=== PATIENT | female | born 1935 | race Caucasian/White ===

== ENCOUNTER 2021-01-24 16:05 | Inpatient (IN) | payer OTHER ==
--- OUTSIDE RECORDS SUMMARY | 2021-01-24 16:08 | XMS REPORT | Continuity of Care Document ---
:1935 Author Organization [facility] t Address [address] [place] [address] Care Team Providers Name Role Phone Gennaro August Primary Care Physician MARLA EGAN Attending Clinician Unavailable DARRIAN BENITEZ Attending Clinician Unavailable RONEL TOMLIN Attending Clinician Unavailable MARLA EGAN Admitting Clinician Unavailable RONEL TOMLIN Admitting Clinician Unavailable Problems Condition Condition Condition Status Onset Resolution Last Treating Co mments Source Name Details Category Date Date Treatment Clinician Date Bronchiect Bronchiect Disease Active C [facility] with asis with 01-08 [facility] - acute acute 00:00: Medical exacerbati exacerbati 00 Ce nter on on Allergies, Adverse Reactions, Alerts Allergy Allergy Status Severity Reaction(s) Onset Inactive Treating Comm ents Source Name Type Date Date Clinician Albutero Drug Active Other (See tachycard [facility] Comments) 12-21 [facility] Levoflox Drug Active Other (See Leg [facility] Allergy [facility]) 12-21 cramps [facility] - 00:[facility]: and Medical 00 [facility] Center walk Social History Social Habit Start Date Stop Date Quantity Comments Source Sex Assigned At [facility] Tobacco use and 2019-01-16 2019-01-16 Never used [facility] Cindy kes - exposure 00:00:00 00:00:00 Medical Center Alcohol intake 2019-01-16 2019-01-16 [facility]:00 non-drinker of Medical Ce nter alcohol (finding) Tobacco Comment 2016-12-21 2016-12-[address] [email or web address] - 00:00:00 00:00:00 Medical Center Smoking Status Start Date Stop Date Source Former smoker 2019-01-16 00:00:00 2019-01-16 00:00:[address] [email or web address] - [facility] Medications Ordered Filled Start Stop Current Ordering Indication Dosage Frequency Signature Comments Components Source Medication Medication Date Date Medication? Clinician (SIG) Name Name multivitami Yes 1{tbl} QD Take [address] [facility] 4-23 tablet by [facility] - (MULTIVITAM 14:32: mouth Medic al IN) per 06 daily. Center tablet umeclidiniu Yes 1{puff} QD Inhale [address] [facility] (INCRUSE 4-23 puff by [facility] - ELLIPTA) 14:32: mouth via Medi mu 62.5 06 inhaler Center mcg/actuati daily. on DsDv powder for inhalation ranitidine Yes 150mg QD Take [address] (ZANTAC) 4-23 mg by [facility] - 150 MG 14:32: mouth Medical tablet 06 nightly. Paia diltiaZEM Yes 30mg Q.5D Take [address] (CARDIZEM) 4-23 by mouth 2 Sharron es - 30 MG 14:32: (two) Medical tablet 06 times Center daily. levalbutero Yes 1{ampul Take [address] [facility] (XOPENEX) 4-23 e} ampule by Sharron es - 0.63 mg/3 14:32: nebulizati Me dical mL 06 on every 6 Center nebulizer (six) solution hours as needed for Wheezing. omeprazole Yes 40mg QD Take [address] (PRILOSEC) 4-23 by mouth [facility] - 40 MG 14:32: daily. Medical capsule 06 Paia ipratropium Yes 500ug Q.25D Take [address] (ATROVENT) 4-23 mcg by [facility] - 0.02 % 14:32: nebulizati Medic al nebulizer 06 on 4 Center solution (four) times daily. levalbutero Yes 1{puff} Inhale [address] [facility] (XOPENEX 4-23 puff by [facility] - HFA) 45 14:32: mouth via Medic al mcg/actuati 06 inhaler Cente r on inhaler every 6 (six) hours as needed for Wheezing. Procedures This patient has no known procedures. Plan of Care Planned Activity Planned Date Details Comments Source Future Scheduled 2020-09-[address] [facility] - Test 00:00:00 (12+) [code = [facility] DEPRESSION SCREENING (12+)] Future Scheduled 2020-05-[address] [facility] - Test 00:00:00 (#1) [code = [facility] INFLUENZA VACCINE (#1)] Future Scheduled 2019-09-[address] [facility] - Test 00:00:00 WELLNESS (YEAR 2 or Medical Center FIRST YEAR if no IPPE) [code = MEDICARE ANNUAL WELLNESS (YEAR 2 or FIRST YEAR if no IPPE)] Future Scheduled 2012-09-28 SHINGLES VACCINES ([address] [facility] - Test 00:00:00 of 3) [code = [facility] SHINGLES VACCINES (2 of 3)] Future Scheduled 1956 DTAP/TDAP/TD VACCINES [facility] - Test 00:00:00 (1 - Tdap) [code = Medical C enter DTAP/TDAP/TD VACCINES (1 - Tdap)] Results Test Description Test Time Test Comments Results Result Comments Source AFB CULTURE + SMEAR 2019-02-26 19:20:00 Test Item Value Reference Range Interpretation Comme nts CULTURE (BEAKER) (test code = 1095) No acid-fast bacilli isolated i n 42 days AFB SMEAR (BEAKER) (test code = 994) No acid fast bacilli seen FUNGUS CULTURE + [id number] 18:23:00 Test Item Value Reference Range Interpretation Comments CULTURE (BEAKER) (test No fungus isolated in code = 1095) 28 days FUNGUS SMEAR (BEAKER) No fungi seen (test code = 1406) BRONCHIAL CULTURE + GRAM [id number] 10:45:00 Test Item Value Reference Range Interpretation Comments CULTURE (BEAKER) 3+ Normal respiratory (test code = 1095) karley present GRAM STAIN RESULT 1+ WBCs (BEAKER) (test code = 1123) GRAM STAIN RESULT <1+ gram positive rods (BEAKER) (test code = 95023) GRAM STAIN RESULT <1+ gram positive cocci (BEAKER) (test code = in clusters 99304) SPIN/CONCENTRATION [id number] 10:14:00 Test Item Value Reference Range Interpretation Comments CONCENTRATION CHARGED (BEAKER) (test Done code = 2657) BASIC METABOLIC [id number] 19:31:00 Test Item Value Reference Range Interpretation Comments SODIUM (BEAKER) 135 meq/L 136-145 L (test code = 381) POTASSIUM (BEAKER) 4.7 meq/L 3.5-5.1 (test code = 379) CHLORIDE (BEAKER) 103 meq/L 98-107 (test code = 382) CO2 (BEAKER) (test 23 meq/L 22-29 code = 355) BLOOD UREA NITROGEN 26 mg/dL 7-21 H (BEAKER) (test code = 354) CREATININE (BEAKER) 0.86 mg/dL 0.57-1.25 (test code = 358) GLUCOSE RANDOM 107 mg/dL 70-105 H (BEAKER) (test code = 652) CALCIUM (BEAKER) 9.7 mg/dL 8.4-10.2 (test code = 697) EGFR (BEAKER) (test 63 mL/min/1.73 ESTIMA OLIVER GFR IS code = 1092) sq m NOT ACCURATE CREATININE CLEARANCE IN PREDICTING GLOMERULAR FILTRATION RATE . ESTIMATED GFR I S NOT APPLICABLE FOR DIALYSIS PATIEN TS. CBC W/PLT COUNT & AUTO [id number] 19:17:00 Test Item Value Reference Range Interpretation Comments WHITE BLOOD CELL COUNT (BEAKER) 8.0 K/ L 3.5-10.5 (test code = 775) RED BLOOD CELL COUNT (BEAKER) 3.91 M/ L 3.93-5.22 L (test code = 761) HEMOGLOBIN (BEAKER) (test code = 11.9 GM/DL 11.2-15.7 410) HEMATOCRIT (BEAKER) (test code = 36.1 % 34.1-44.9 411) MEAN CORPUSCULAR VOLUME (BEAKER) 92.3 fL 79.4-94.8 (test code = 753) MEAN CORPUSCULAR HEMOGLOBIN 30.4 pg 25.6-32.2 (BEAKER) (test code = 751) MEAN CORPUSCULAR HEMOGLOBIN CONC 33.0 GM/DL 32.2-35.5 (BEAKER) (test code = 752) RED CELL DISTRIBUTION WIDTH 13.5 % 11.7-14.4 (BEAKER) (test code = 412) PLATELET COUNT (BEAKER) (test 444 K/CU MM 150-450 code = 756) MEAN PLATELET VOLUME (BEAKER) 8.4 fL 9.4-12.3 L (test code = 754) NUCLEATED RED BLOOD CELLS 0 /100 WBC 0-0 (BEAKER) (test code = 413) NEUTROPHILS RELATIVE PERCENT 69 % (BEAKER) (test code = 429) LYMPHOCYTES RELATIVE PERCENT 19 % (BEAKER) (test code = 430) MONOCYTES RELATIVE PERCENT 8 % (BEAKER) (test code = 431) EOSINOPHILS RELATIVE PERCENT 3 % (BEAKER) (test code = 432) BASOPHILS RELATIVE PERCENT 1 % (BEAKER) (test code = 437) NEUTROPHILS ABSOLUTE COUNT 5.50 K/ L 1.56-6.13 (BEAKER) (test code = 670) LYMPHOCYTES ABSOLUTE COUNT 1.54 K/ L 1.18-3.74 (BEAKER) (test code = 414) MONOCYTES ABSOLUTE COUNT (BEAKER) 0.63 K/ L 0.24-0.36 H (test code = 415) EOSINOPHILS ABSOLUTE COUNT 0.23 K/ L 0.04-0.36 (BEAKER) (test code = 416) BASOPHILS ABSOLUTE COUNT (BEAKER) 0.04 K/ L 0.01-0.08 (test code = 417) IMMATURE GRANULOCYTES-RELATIVE 0 % 0-1 PERCENT (BEAKER) (test code = 2801) AFB CULTURE + [id number] 15:03:00 Test Item Value Reference Range Interpretation Comments CULTURE (BEAKER) (test No acid-fast bacilli code = 1095) isolated in 42 days AFB SMEAR (BEAKER) No acid fast bacilli (test code = 994) seen AFB CULTURE + [id number] 15:03:00 Test Item Value Reference Range Interpretation Comments CULTURE (BEAKER) (test No acid-fast bacilli code = 1095) isolated in 42 days AFB SMEAR (BEAKER) No acid fast bacilli (test code = 994) seen FUNGUS CULTURE + [id number] 13:16:00 Test Item Value Reference Range Interpretation Comments CULTURE (BEAKER) (test No fungus isolated in code = 1095) 28 days FUNGUS SMEAR (BEAKER) No fungi seen (test code = 1406) BLOOD [id number] 16:15:00 Test Item Value Reference Range Interpretation Comments CULTURE (BEAKER) (test No growth in 5 days code = 1095) BLOOD [id number] 16:15:00 Test Item Value Reference Range Interpretation Comments CULTURE (BEAKER) (test No growth in 5 days code = 1095) FUNGUS CULTURE + [id number] 10:04:00 Test Item Value Reference Range Interpretation Comments CULTURE (BEAKER) A 1 out of 3 media (test code = 1095) Dematiace ous fungusSee comment. FUNGUS SMEAR No fungi seen (BEAKER) (test code = 1406) Unable to perform further identification due to overgrowth of contaminant. [id number] 04:57:00 Test Item Value Reference Range Interpretation Comments PHOSPHORUS (BEAKER) (test code = 2.8 mg/dL 2.3-4.7 604) [id number] 04:57:00 Test Item Value Reference Range Interpretation Comments MAGNESIUM (BEAKER) (test code = 2.0 mg/dL 1.6-2.6 627) BASIC METABOLIC [id number] 04:57:00 Test Item Value Reference Range Interpretation Comments SODIUM (BEAKER) 135 meq/L 136-145 L (test code = 381) POTASSIUM (BEAKER) 4.3 meq/L 3.5-5.1 (test code = 379) CHLORIDE (BEAKER) 99 meq/L 98-107 (test code = 382) CO2 (BEAKER) (test 28 meq/L 22-29 code = 355) BLOOD UREA NITROGEN 19 mg/dL 7-21 (BEAKER) (test code = 354) CREATININE (BEAKER) 0.72 mg/dL 0.57-1.25 (test code = 358) GLUCOSE RANDOM 97 mg/dL 70-105 (BEAKER) (test code = 652) CALCIUM (BEAKER) 9.3 mg/dL 8.4-10.2 (test code = 697) EGFR (BEAKER) (test 78 mL/min/1.73 ESTIMA OLIVER GFR IS code = 1092) sq m NOT ACCURATE CREATININE CLEARANCE IN PREDICTING GLOMERULAR FILTRATION RATE . ESTIMATED GFR I S NOT APPLICABLE FOR DIALYSIS PATIEN TS. CBC W/PLT COUNT & AUTO [id number] 04:43:00 Test Item Value Reference Range Interpretation Comments WHITE BLOOD CELL COUNT (BEAKER) 6.7 K/ L 4.0-10.0 (test code = 775) RED BLOOD CELL COUNT (BEAKER) 3.79 M/ L 4.00-5.00 L (test code = 761) HEMOGLOBIN (BEAKER) (test code = 10.7 GM/DL 12.0-15.0 L 410) HEMATOCRIT (BEAKER) (test code = 33.1 % 36.0-45.0 L 411) MEAN CORPUSCULAR VOLUME (BEAKER) 87.4 fL 82.0-99.0 (test code = 753) MEAN CORPUSCULAR HEMOGLOBIN 28.3 pg 27.0-33.0 (BEAKER) (test code = 751) MEAN CORPUSCULAR HEMOGLOBIN CONC 32.4 GM/DL 32.0-36.0 (BEAKER) (test code = 752) RED CELL DISTRIBUTION WIDTH 15.8 % 10.3-14.2 H (BEAKER) (test code = 412) PLATELET COUNT (BEAKER) (test 313 K/CU MM 150-430 code = 756) MEAN PLATELET VOLUME (BEAKER) 6.1 fL 6.5-10.5 L (test code = 754) NUCLEATED RED BLOOD CELLS 0 /100 WBC 0-0 (BEAKER) (test code = 413) NEUTROPHILS RELATIVE PERCENT 61 % (BEAKER) (test code = 429) LYMPHOCYTES RELATIVE PERCENT 26 % (BEAKER) (test code = 430) MONOCYTES RELATIVE PERCENT 9 % (BEAKER) (test code = 431) EOSINOPHILS RELATIVE PERCENT 3 % (BEAKER) (test code = 432) BASOPHILS RELATIVE PERCENT 1 % (BEAKER) (test code = 437) NEUTROPHILS ABSOLUTE COUNT 4.12 K/ L 1.80-8.00 (BEAKER) (test code = 670) LYMPHOCYTES ABSOLUTE COUNT 1.75 K/ L 1.48-4.50 (BEAKER) (test code = 414) MONOCYTES ABSOLUTE COUNT (BEAKER) 0.63 K/ L 0.00-1.30 (test code = 415) EOSINOPHILS ABSOLUTE COUNT 0.19 K/ L 0.00-0.50 (BEAKER) (test code = 416) BASOPHILS ABSOLUTE COUNT (BEAKER) 0.06 K/ L 0.00-0.20 (test code = 417) [id number] 07:35:00 Test Item Value Reference Range Interpretation Comments PHOSPHORUS (BEAKER) (test code = 2.7 mg/dL 2.3-4.7 604) [id number] 07:35:00 Test Item Value Reference Range Interpretation Comments MAGNESIUM (BEAKER) (test code = 1.7 mg/dL 1.6-2.6 627) BASIC METABOLIC [id number] 07:35:00 Test Item Value Reference Range Interpretation Comments SODIUM (BEAKER) 130 meq/L 136-145 L (test code = 381) POTASSIUM (BEAKER) 4.8 meq/L 3.5-5.1 (test code = 379) CHLORIDE (BEAKER) 96 meq/L 98-107 L (test code = 382) CO2 (BEAKER) (test 25 meq/L 22-29 code = 355) BLOOD UREA NITROGEN 15 mg/dL 7-21 (BEAKER) (test code = 354) CREATININE (BEAKER) 0.75 mg/dL 0.57-1.25 (test code = 358) GLUCOSE RANDOM 100 mg/dL 70-105 (BEAKER) (test code = 652) CALCIUM (BEAKER) 9.1 mg/dL 8.4-10.2 (test code = 697) EGFR (BEAKER) (test 75 mL/min/1.73 ESTIMA OLIVER GFR IS code = 1092) sq m NOT ACCURATE CREATININE CLEARANCE IN PREDICTING GLOMERULAR FILTRATION RATE . ESTIMATED GFR I S NOT APPLICABLE FOR DIALYSIS PATIEN TS. CBC W/PLT COUNT & AUTO [id number] 07:21:00 Test Item Value Reference Range Interpretation Comments WHITE BLOOD CELL COUNT (BEAKER) 8.0 K/ L 4.0-10.0 (test code = 775) RED BLOOD CELL COUNT (BEAKER) 3.77 M/ L 4.00-5.00 L (test code = 761) HEMOGLOBIN (BEAKER) (test code = 10.3 GM/DL 12.0-15.0 L 410) HEMATOCRIT (BEAKER) (test code = 33.1 % 36.0-45.0 L 411) MEAN CORPUSCULAR VOLUME (BEAKER) 87.8 fL 82.0-99.0 (test code = 753) MEAN CORPUSCULAR HEMOGLOBIN 27.4 pg 27.0-33.0 (BEAKER) (test code = 751) MEAN CORPUSCULAR HEMOGLOBIN CONC 31.2 GM/DL 32.0-36.0 L (BEAKER) (test code = 752) RED CELL DISTRIBUTION WIDTH 15.0 % 10.3-14.2 H (BEAKER) (test code = 412) PLATELET COUNT (BEAKER) (test 352 K/CU MM 150-430 code = 756) MEAN PLATELET VOLUME (BEAKER) 6.1 fL 6.5-10.5 L (test code = 754) NUCLEATED RED BLOOD CELLS 0 /100 WBC 0-0 (BEAKER) (test code = 413) NEUTROPHILS RELATIVE PERCENT 69 % (BEAKER) (test code = 429) LYMPHOCYTES RELATIVE PERCENT 20 % (BEAKER) (test code = 430) MONOCYTES RELATIVE PERCENT 7 % (BEAKER) (test code = 431) EOSINOPHILS RELATIVE PERCENT 3 % (BEAKER) (test code = 432) BASOPHILS RELATIVE PERCENT 1 % (BEAKER) (test code = 437) NEUTROPHILS ABSOLUTE COUNT 5.53 K/ L 1.80-8.00 (BEAKER) (test code = 670) LYMPHOCYTES ABSOLUTE COUNT 1.64 K/ L 1.48-4.50 (BEAKER) (test code = 414) MONOCYTES ABSOLUTE COUNT (BEAKER) 0.59 K/ L 0.00-1.30 (test code = 415) EOSINOPHILS ABSOLUTE COUNT 0.23 K/ L 0.00-0.50 (BEAKER) (test code = 416) BASOPHILS ABSOLUTE COUNT (BEAKER) 0.05 K/ L 0.00-0.20 (test code = 417) 0.00CBC W/PLT COUNT & AUTO [id number] 10:17:00 Test Item Value Reference Range Interpretation Comments WHITE BLOOD CELL COUNT 6.7 K/ L 4.0-10.0 (BEAKER) (test code = 775) RED BLOOD CELL COUNT 3.58 M/ L 4.00-5.00 L (BEAKER) (test code = 761) HEMOGLOBIN (BEAKER) 10.6 GM/DL 12.0-15.0 L (test code = 410) HEMATOCRIT (BEAKER) 31.9 % 36.0-45.0 L (test code = 411) MEAN CORPUSCULAR 89.0 fL 82.0-99.0 VOLUME (BEAKER) (test code = 753) MEAN CORPUSCULAR 29.5 pg 27.0-33.0 HEMOGLOBIN (BEAKER) (test code = 751) MEAN CORPUSCULAR 33.2 GM/DL 32.0-36.0 HEMOGLOBIN CONC (BEAKER) (test code = 752) RED CELL DISTRIBUTION 15.7 % 10.3-14.2 H WIDTH (BEAKER) (test code = 412) PLATELET COUNT 364 K/CU MM 150-430 Significant (BEAKER) (test code = differ ence from 756) previous result MEAN PLATELET VOLUME 6.2 fL 6.5-10.5 L (BEAKER) (test code = 754) NUCLEATED RED BLOOD 0 /100 WBC 0-0 CELLS (BEAKER) (test code = 413) NEUTROPHILS RELATIVE 64 % PERCENT (BEAKER) (test code = 429) LYMPHOCYTES RELATIVE 23 % PERCENT (BEAKER) (test code = 430) MONOCYTES RELATIVE 8 % PERCENT (BEAKER) (test code = 431) EOSINOPHILS RELATIVE 4 % PERCENT (BEAKER) (test code = 432) BASOPHILS RELATIVE 1 % PERCENT (BEAKER) (test code = 437) NEUTROPHILS ABSOLUTE 4.25 K/ L 1.80-8.00 COUNT (BEAKER) (test code = 670) LYMPHOCYTES ABSOLUTE 1.56 K/ L 1.48-4.50 COUNT (BEAKER) (test code = 414) MONOCYTES ABSOLUTE 0.54 K/ L 0.00-1.30 COUNT (BEAKER) (test code = 415) EOSINOPHILS ABSOLUTE 0.30 K/ L 0.00-0.50 COUNT (BEAKER) (test code = 416) BASOPHILS ABSOLUTE 0.04 K/ L 0.00-0.20 COUNT (BEAKER) (test code = 417) [id number] 06:55:00 Test Item Value Reference Range Interpretation Comments PHOSPHORUS (BEAKER) (test code = 3.3 mg/dL 2.3-4.7 604) [id number] 06:55:00 Test Item Value Reference Range Interpretation Comments MAGNESIUM (BEAKER) (test code = 1.8 mg/dL 1.6-2.6 627) BASIC METABOLIC [id number] 06:55:00 Test Item Value Reference Range Interpretation Comments SODIUM (BEAKER) 133 meq/L 136-145 L (test code = 381) POTASSIUM (BEAKER) 4.3 meq/L 3.5-5.1 (test code = 379) CHLORIDE (BEAKER) 101 meq/L 98-107 (test code = 382) CO2 (BEAKER) (test 25 meq/L 22-29 code = 355) BLOOD UREA NITROGEN 18 mg/dL 7-21 (BEAKER) (test code = 354) CREATININE (BEAKER) 0.69 mg/dL 0.57-1.25 (test code = 358) GLUCOSE RANDOM 95 mg/dL 70-105 (BEAKER) (test code = 652) CALCIUM (BEAKER) 8.8 mg/dL 8.4-10.2 (test code = 697) EGFR (BEAKER) (test 82 mL/min/1.73 ESTIMA OLIVER GFR IS code = 1092) sq m NOT ACCURATE CREATININE CLEARANCE IN PREDICTING GLOMERULAR FILTRATION RATE . ESTIMATED GFR I S NOT APPLICABLE FOR DIALYSIS PATIEN TS. [id number] 13:52:00 Test Item Value Reference Range Interpretation Comments PHOSPHORUS (BEAKER) (test code = 3.7 mg/dL 2.3-4.7 604) [id number] 13:52:00 Test Item Value Reference Range Interpretation Comments MAGNESIUM (BEAKER) (test code = 1.9 mg/dL 1.6-2.6 627) BASIC METABOLIC [id number] 13:52:00 Test Item Value Reference Range Interpretation Comments SODIUM (BEAKER) 132 meq/L 136-145 L (test code = 381) POTASSIUM (BEAKER) 4.3 meq/L 3.5-5.1 (test code = 379) CHLORIDE (BEAKER) 98 meq/L 98-107 (test code = 382) CO2 (BEAKER) (test 23 meq/L 22-29 code = 355) BLOOD UREA NITROGEN 14 mg/dL 7-21 (BEAKER) (test code = 354) CREATININE (BEAKER) 0.79 mg/dL 0.57-1.25 (test code = 358) GLUCOSE RANDOM 91 mg/dL 70-105 (BEAKER) (test code = 652) CALCIUM (BEAKER) 9.3 mg/dL 8.4-10.2 (test code = 697) EGFR (BEAKER) (test 70 mL/min/1.73 ESTIMA OLIVER GFR IS code = 1092) sq m NOT ACCURATE CREATININE CLEARANCE IN PREDICTING GLOMERULAR FILTRATION RATE . ESTIMATED GFR I S NOT APPLICABLE FOR DIALYSIS PATIEN TS. CBC W/PLT COUNT & AUTO [id number] 13:35:00 Test Item Value Reference Range Interpretation Comments WHITE BLOOD CELL COUNT (BEAKER) 9.7 K/ L 4.0-10.0 (test code = 775) RED BLOOD CELL COUNT (BEAKER) 3.62 M/ L 4.00-5.00 L (test code = 761) HEMOGLOBIN (BEAKER) (test code = 10.4 GM/DL 12.0-15.0 L 410) HEMATOCRIT (BEAKER) (test code = 31.8 % 36.0-45.0 L 411) MEAN CORPUSCULAR VOLUME (BEAKER) 87.9 fL 82.0-99.0 (test code = 753) MEAN CORPUSCULAR HEMOGLOBIN 28.7 pg 27.0-33.0 (BEAKER) (test code = 751) MEAN CORPUSCULAR HEMOGLOBIN CONC 32.6 GM/DL 32.0-36.0 (BEAKER) (test code = 752) RED CELL DISTRIBUTION WIDTH 15.0 % 10.3-14.2 H (BEAKER) (test code = 412) PLATELET COUNT (BEAKER) (test 425 K/CU MM 150-430 code = 756) MEAN PLATELET VOLUME (BEAKER) 6.1 fL 6.5-10.5 L (test code = 754) NUCLEATED RED BLOOD CELLS 0 /100 WBC 0-0 (BEAKER) (test code = 413) NEUTROPHILS RELATIVE PERCENT 66 % (BEAKER) (test code = 429) LYMPHOCYTES RELATIVE PERCENT 23 % (BEAKER) (test code = 430) MONOCYTES RELATIVE PERCENT 8 % (BEAKER) (test code = 431) EOSINOPHILS RELATIVE PERCENT 2 % (BEAKER) (test code = 432) BASOPHILS RELATIVE PERCENT 0 % (BEAKER) (test code = 437) NEUTROPHILS ABSOLUTE COUNT 6.40 K/ L 1.80-8.00 (BEAKER) (test code = 670) LYMPHOCYTES ABSOLUTE COUNT 2.28 K/ L 1.48-4.50 (BEAKER) (test code = 414) MONOCYTES ABSOLUTE COUNT (BEAKER) 0.79 K/ L 0.00-1.30 (test code = 415) EOSINOPHILS ABSOLUTE COUNT 0.22 K/ L 0.00-0.50 (BEAKER) (test code = 416) BASOPHILS ABSOLUTE COUNT (BEAKER) 0.04 K/ L 0.00-0.20 (test code = 417) 0.00BRONCHIAL CULTURE + GRAM [id number] 04:09:00 Test Item Value Reference Range Interpretation Comments CULTURE A 1+ Same organis m has (BEAKER) (test been isolated from code = 1095) cultures(s) of the same body site and collection date . Repeat identifi cation and susceptibil ity testing perform ed only after consultat ion with the clinic md microbiology laboratory.Refe r to previous cultur e ofPseudomonas aeruginosa CULTURE A 1+ Same organis m has (BEAKER) (test been isolated from code = 334343) cultures(s) o f the same body site within 3 days. Repeat identification and susceptibility testing performed only after consultation wi th the clinical microb iology laboratory.Pseu domonas aeruginosaof a second type GRAM STAIN 2+ WBCs RESULT (BEAKER) (test code = 1123) GRAM STAIN No organisms seen RESULT (BEAKER) (test code = 399172) 1+ Normal respiratory karley presentBRONCHIAL CULTURE + GRAM [id number] 03:58:00 Test Item Value Reference Range Interpretation Comments CULTURE (BEAKER) PSEUDOMONAS A 1+ Pseudomo brandie (test code = 1095) AERUGINOSA aeruginos a Amikacin (test code Susceptible 0-16 S = 1) , Resistant <0 or >16 Aztreonam (test Susceptible 0-8 , S code = 32) Resistant <0 or >8 Cefepime (test code Susceptible 0-8 , R = 51) Resistant <0 or >8 Ceftazidime (test Susceptible 0-8 , R code = 27) Resistant <0 or >8 Ciprofloxacin (test Susceptible 0-1 , S code = 7) Resistant <0 or >1 Doripenem (test Susceptible 0-2 , S code = 100) Resistant <0 or >2 Gentamicin (test Susceptible 0-4 , S code = 18) Resistant <0 or >4 Levofloxacin (test Susceptible 0-2 , S code = 22) Resistant <0 or >2 Meropenem (test Susceptible 0-2 , S code = 34) Resistant <0 or >2 Piperacillin (test Susceptible 0-16 R code = 24) , Resistant <0 or >16 Piperacillin + Susceptible 0-16 S Tazobactam (test , Resistant <0 or code = 29) >16 Tobramycin (test Susceptible 0-4 , S code = 25) Resistant <0 or >4 CULTURE (BEAKER) A 3+ Haemophi kai (test code = parainfluenzaeB et 550186) a-lactamase negative CULTURE (BEAKER) PSEUDOMONAS A 2+ Pseudomo brandie (test code = 46189) AERUGINOSA aerugino saof a second type Amikacin (test code Susceptible 0-16 S = 1) , Resistant <0 or >16 Aztreonam (test Susceptible 0-8 , R code = 32) Resistant <0 or >8 Cefepime (test code Susceptible 0-8 , R = 51) Resistant <0 or >8 Ceftazidime (test Susceptible 0-8 , R code = 27) Resistant <0 or >8 Ciprofloxacin (test Susceptible 0-1 , R code = 7) Resistant <0 or >1 Doripenem (test Susceptible 0-2 , S code = 100) Resistant <0 or >2 Gentamicin (test Susceptible 0-4 , S code = 18) Resistant <0 or >4 Levofloxacin (test Susceptible 0-2 , R code = 22) Resistant <0 or >2 Meropenem (test Susceptible 0-2 , S code = 34) Resistant <0 or >2 Piperacillin (test Susceptible 0-16 R code = 24) , Resistant <0 or >16 Piperacillin + Susceptible 0-16 R Tazobactam (test , Resistant <0 or code = 29) >16 Tobramycin (test Susceptible 0-4 , S code = 25) Resistant <0 or >4 CULTURE (BEAKER) A 4+ Pseudomo brandie (test code = aeruginosaof a [id number]) third type GRAM STAIN RESULT 1+ White blood (BEAKER) (test code cells seen = 1123) GRAM STAIN RESULT <1+ gram negative (BEAKER) (test code rods = 574056) GRAM STAIN RESULT <1+ gram positive (BEAKER) (test code cocci in pairs = 843185) 2+ Normal respiratory karley presentSPIN/CONCENTRATION [id number] 17:52:00 Test Item Value Reference Range Interpretation Comments CONCENTRATION CHARGED (BEAKER) (test Done code = 2657) SPIN/CONCENTRATION [id number] 16:46:00 Test Item Value Reference Range Interpretation Comments CONCENTRATION CHARGED (BEAKER) (test Done code = 2657)
[2021-01-24 17:03] LABS: Absolute Lymphocytes (CBC) 1.5 K/uL (0.7-4.9); Basophils % 0.4 % (0-1.3); Hematocrit 40.6 % (36.0-45.0); Lymphocytes % 17.4 % (15.3-44.8); MPV 7.5 fL (7.6-11.3); RBC Red Blood Cell Count 4.48 M/uL (3.86-4.86)
--- NOTE | 2021-01-24 17:14 | ER ---
Nurse's Notes [facility] Name: Rosamaria Liao Age: 85 yrs Sex: Female : 1935 Arrival Date: 01/24/2021 Time: 16:10 Bed 26 Private MD: Diagnosis: Fever, unspecified;Chronic obstructive pulmonary disease with (acute) exacerbation;Hypoxemia;Bronchiectasis with (acute) exacerbation;Hypo-osmolality and hyponatremia Presentation: 01/24 16:16 Chief complaint: Patient's son or daughter states: n/v/d/SOB, fever, sore throat since sv Wednesday. Has been seeing her PCP for "fungus" in her lung. Coronavirus screen: Client denies travel out of the [place] in the last 14 days. At this time, the client does not indicate any symptoms associated with coronavirus-19. Ebola Screen: No symptoms or risks identified at this time. Risk Assessment: Do you want to hurt yourself or someone else? Patient reports no desire to harm self or others. Onset of symptoms was January 19, 2021. 16:16 Method Of Arrival: Wheelchair sv 16:16 Acuity: MAGY 3 sv 16:16 Acuity: MAGY 2 sv 16:16 Initial Sepsis Screen: Does the patient meet any 2 criteria? Temp <36.0*C (96.8*F)) or sv > 38.3*C (100.9*F). HR > 90 bpm. Yes Does the patient have a suspected source of infection? Yes: Other: fever. Historical: - Allergies: 16:18 Levaquin; sv 16:18 Albuterol; sv - PMHx: 16:18 COPD; Bronchitis; Emphysema; sv 20:32 Cancer, Breast; vg1 - PSHx: 20:32 Mastectomy, Left; Mastectomy, Right; vg1 - Immunization history:: Client reports receiving the 2nd dose of the Covid vaccine, Client reports receiving the 1st dose of the Covid vaccine. - Social history:: Smoking status: Patient denies any tobacco usage or history of. Screenin:53 Abuse screen: Denies threats or abuse. Nutritional screening: No deficits noted. vg1 Tuberculosis screening: No symptoms or risk factors identified. Fall Risk No fall in past 12 months (0 pts). No secondary diagnosis (0 pts). IV access (20 points). Ambulatory Aid- Crutches/Cane/Walker (15 pts). Gait- Normal/Bed Rest/Wheelchair (0 pts) Mental Status- Oriented to own ability (0 pts). Total Leonard Fall Scale indicates Low Risk Score (25-44 pts). Fall prevention measures have been instituted. Side Rails Up X 2 Placed close to Nursing Station 1:1 attendant Assigned to Pt. Family Present and informed to notify staff if they need to leave bedside. Assessment: 16:24 Reassessment: Code sepsis called, workup started. sv 16:47 General: Appears in no apparent distress. comfortable, Behavior is calm, cooperative. vg1 Pain: Denies pain. Neuro: Level of Consciousness is awake, alert, obeys commands, Oriented to person, place, time, situation. Cardiovascular: Capillary refill < 3 seconds in bilateral fingers. Respiratory: Airway is patent Respiratory effort is even, unlabored, Respiratory pattern is tachypnea Pleural rub noted bilaterally. Respiratory: Reports shortness of breath cough that is productive, pain with cough. GI: Reports diarrhea, nausea, vomiting. : No signs and/or symptoms were reported regarding the genitourinary system. EENT: Throat is reddened. Derm: Skin is intact, Skin is pink, warm \\T\\ dry. Musculoskeletal: Circulation, motion, and sensation intact. 18:11 Reassessment: Patient appears in no apparent distress at this time. No changes from vg1 previously documented assessment. Patient and/or family updated on plan of care and expected duration. Pain level reassessed. Patient is alert, oriented x 3, equal unlabored respirations, skin warm/dry/pink. 18:52 Reassessment: Pt given protein shake, Ensure; Pt stated has not been able to eat in two vg1 days; ESTEFANIA Zuniga was at bedside and approved of pt receiving Ensure. 19:56 Reassessment: Patient appears in no apparent distress at this time. Patient and/or vg1 family updated on plan of care and expected duration. Pain level reassessed. Patient is alert, oriented x 3, equal unlabored respirations, skin warm/dry/pink. 20:29 Reassessment: Attempted to call report. vg1 Vital Signs: 16:16 BP 120 / 69; Pulse 112; Resp 18; Temp 102.2(O); Pulse Ox 90% ; Weight 51.26 kg; Height sv 5 ft. 3 in. (160.02 cm); 16:52 BP 126 / 64; Pulse 104; Resp 26; Pulse Ox 93% on 2 lpm NC; vg1 17:00 BP 122 / 68; Pulse 109; Resp 24; Pulse Ox 94% on 2 lpm NC; vg1 17:30 BP 121 / 64; Pulse 104; Resp 26; Pulse Ox 94% on 2 lpm NC; vg1 18:00 BP 125 / 61; Pulse 98; Resp 28; Pulse Ox 95% on 2 lpm NC; vg1 18:37 BP 119 / 60; Pulse 109; Resp 26; Pulse Ox 96% on 2 lpm NC; vg1 19:00 BP 119 / 58; Pulse 107; Resp 30; Pulse Ox 95% on 2 lpm NC; vg1 19:30 BP 116 / 60; Pulse 113; Resp 26; Pulse Ox 95% on 2 lpm NC; vg1 20:00 BP 122 / 68; Pulse 108; Resp 24; Temp 98.8(O); Pulse Ox 96% on 2 lpm NC; vg1 20:48 BP 105 / 52; Pulse 95; Resp 18; Pulse Ox 94% on 2 lpm NC; vg1 16:16 Body Mass Index 20.02 (51.26 kg, 160.02 cm) sv ED Course: 16:10 Patient arrived in ED. ds1 16:17 Triage completed. sv 16:18 Arm band placed on. sv 16:26 Levi Snyder MD is Attending Physician. balbir 16:37 Jaimie Roberts RN is Primary Nurse. vg1 16:53 Patient has correct armband on for positive identification. Bed in low position. Call vg1 light in reach. Side rails up X2. Adult w/ patient. 17:08 Chest Single View XRAY In Process Unspecified. EDMS 17:12 Santi Rangel MD is Hospitalizing Provider. balbir 19:14 Primary Nurse role handed off by Jaimie Roberts, GOYO eb 19:46 Jaimie Roberts RN is Primary Nurse. vg1 20:30 Inserted saline lock: 20 gauge in right antecubital area, using aseptic technique. vg1 ,using aseptic technique. completed by GOYO Faria. 21:31 No provider procedures requiring assistance completed. Patient admitted, IV remains in vg1 place. Administered Medications: 17:53 Drug: Tylenol 650 mg Route: PO; vg1 20:49 Follow up: Response: No adverse reaction; Temperature is decreased vg1 17:55 Drug: NS 0.9% 500 ml Route: IV; Rate: bolus; Site: right antecubital; vg1 18:30 Follow up: IV Status: Completed infusion; IV Intake: 500ml vg1 18:00 Drug: SOLU-Medrol (methylPrednisoLONE) 125 mg Route: IVP; Site: right antecubital; vg1 20:50 Follow up: Response: No adverse reaction vg1 18:02 Drug: Pepcid (famotidine) 20 mg Route: IVP; Site: right antecubital; vg1 20:49 Follow up: Response: No adverse reaction vg1 18:04 Drug: Meropenem 1 grams Route: IV; Rate: per protocol; Site: right antecubital; vg1 18:36 Follow up: IV Status: Completed infusion; IV Intake: 100ml vg1 18:07 Drug: Xopenex (levalbuterol) 1.25 mg Route: Inhalation; vg1 20:50 Follow up: Response: No adverse reaction vg1 18:07 Drug: AtroVENT (ipratropium) Aerosol 0.5 mg Route: Inhalation; vg1 20:49 Follow up: Response: No adverse reaction vg1 18:32 Drug: NS 0.9% 1000 ml Route: IV; Rate: 125 ml/hr; Site: right antecubital; vg1 20:49 Follow up: IV Status: Infusion continued upon admission vg1 18:38 Drug: Digoxin 0.25 mg Route: IVP; Site: right antecubital; vg1 20:48 Follow up: BP 105 / 52; Pulse 95 bpm; Resp 18 bpm; Pulse Ox 94% 2 lpm Nasal Cannula; vg1 Response: No adverse reaction 18:45 Drug: Zithromax (azithromycin) 500 mg Route: IVPB; Infused Over: 1 hrs; Site: right vg1 antecubital; 19:56 Follow up: IV Status: Completed infusion; IV Intake: 250ml vg1 Intake: 18:30 IV: 500ml; Total: 500ml. vg1 18:36 IV: 100ml; Total: 600ml. vg1 19:56 IV: 250ml; Total: 850ml. vg1 Outcome: 17:14 Decision to Hospitalize by Provider. balbir 21:32 Admitted to Tele accompanied by nurse, via stretcher, room 222, with oxygen, with vg1 chart, Report called to GOYO Diaz 21:32 Condition: stable 21:32 Instructed on the need for admit. 21:38 Patient left the ED. vg1 Signatures: Dispatcher [employer] Amarilis German RN RN Levi Sykse MD MD cha Sanford, Demi ds1 Elisha Pichardo Victoria, RN RN vg1 Corrections: (The following items were deleted from the chart) 16:19 16:16 BP 120 / 69; Pulse 112bpm; Resp 18bpm; Pulse Ox 90%; 51.26 kg; Height 5 ft. 3 sv in.; BMI: 20.0; sv 19:12 16:47 GI: No signs and/or symptoms were reported involving the gastrointestinal system. vg1 vg1
--- NOTE | 2021-01-24 17:14 | EDPHYS ---
Physician Documentation [facility] Name: Rosamaria Liao Age: 85 yrs Sex: Female : 1935 Arrival Date: 01/24/2021 Time: 16:10 Bed 26 Private MD: ED Physician Levi Snyder HPI: 01/24 16:57 This 85 yrs old Female presents to ER via Wheelchair with complaints of balbir Fever, Cough, Sore Throat. 16:57 The patient reports fever, that was measured at 102 degrees Fahrenheit. Onset: The balbir symptoms/episode began/occurred 3 day(s) ago. Modifying factors: there are no obvious modifying factors. Associated signs and symptoms: Pertinent positives: arthralgias, chills, cough. Severity of symptoms: At their worst the symptoms were moderate in the emergency department the symptoms are unchanged. The patient has not experienced similar symptoms in the past. Historical: - Allergies: 16:18 Levaquin; sv 16:18 Albuterol; sv - PMHx: 16:18 COPD; Bronchitis; Emphysema; sv 20:32 Cancer, Breast; vg1 - PSHx: 20:32 Mastectomy, Left; Mastectomy, Right; vg1 - Immunization history:: Client reports receiving the 2nd dose of the Covid vaccine, Client reports receiving the 1st dose of the Covid vaccine. - Social history:: Smoking status: Patient denies any tobacco usage or history of. ROS: 16:58 Eyes: Negative for injury, pain, redness, and discharge, ENT: Negative for injury, balbir pain, and discharge. 16:58 Neck: Negative for injury, pain, and swelling, Cardiovascular: Negative for chest pain, palpitations, and edema, Abdomen/GI: Negative for abdominal pain, nausea, vomiting, diarrhea, and constipation, Back: Negative for injury and pain, : Negative for injury, bleeding, discharge, and swelling, MS/Extremity: Negative for injury and deformity, Skin: Negative for injury, rash, and discoloration, Neuro: Negative for headache, weakness, numbness, tingling, and seizure, Psych: Negative for depression, anxiety, suicide ideation, homicidal ideation, and hallucinations, Allergy/Immunology: Negative for hives, rash, and allergies, Endocrine: Negative for neck swelling, polydipsia, polyuria, polyphagia, and marked weight changes, Hematologic/Lymphatic: Negative for swollen nodes, abnormal bleeding, and unusual bruising. 16:58 Constitutional: Positive for body aches, chills, fatigue, fever, malaise. 16:58 Respiratory: Positive for cough, "sounds productive". Exam: 16:58 Head/Face: Normocephalic, atraumatic. Eyes: Pupils equal round and reactive to light, balbir extra-ocular motions intact. Lids and lashes normal. Conjunctiva and sclera are non-icteric and not injected. Cornea within normal limits. Periorbital areas with no swelling, redness, or edema. ENT: Nares patent. No nasal discharge, no septal abnormalities noted. Tympanic membranes are normal and external auditory canals are clear. Oropharynx with no redness, swelling, or masses, exudates, or evidence of obstruction, uvula midline. Mucous membranes moist. Neck: Trachea midline, no thyromegaly or masses palpated, and no cervical lymphadenopathy. Supple, full range of motion without nuchal rigidity, or vertebral point tenderness. No Meningismus. Chest/axilla: Normal chest wall appearance and motion. Nontender with no deformity. No lesions are appreciated. Abdomen/GI: Soft, non-tender, with normal bowel sounds. No distension or tympany. No guarding or rebound. No evidence of tenderness throughout. Back: No spinal tenderness. No costovertebral tenderness. Full range of motion. Female : Normal external genitalia. Skin: Warm, dry with normal turgor. Normal color with no rashes, no lesions, and no evidence of cellulitis. MS/ Extremity: Pulses equal, no cyanosis. Neurovascular intact. Full, normal range of motion. Neuro: Awake and alert, GCS 15, oriented to person, place, time, and situation. Cranial nerves II-XII grossly intact. Motor strength 5/5 in all extremities. Sensory grossly intact. Cerebellar exam normal. Normal gait. Psych: Awake, alert, with orientation to person, place and time. Behavior, mood, and affect are within normal limits. 16:58 Cardiovascular: Rate: tachycardic, Rhythm: regular, Pulses: Pulses are 4+ in bilateral radial, brachial, femoral, popliteal, posterior tibial and and dorsalis pedis arteries.. Heart sounds: normal, Edema: is not appreciated, JVD: is not appreciated. 16:58 ECG was reviewed by the Attending Physician. Vital Signs: 16:16 BP 120 / 69; Pulse 112; Resp 18; Temp 102.2(O); Pulse Ox 90% ; Weight 51.26 kg; Height sv 5 ft. 3 in. (160.02 cm); 16:52 BP 126 / 64; Pulse 104; Resp 26; Pulse Ox 93% on 2 lpm NC; vg1 17:00 BP 122 / 68; Pulse 109; Resp 24; Pulse Ox 94% on 2 lpm NC; vg1 17:30 BP 121 / 64; Pulse 104; Resp 26; Pulse Ox 94% on 2 lpm NC; vg1 18:00 BP 125 / 61; Pulse 98; Resp 28; Pulse Ox 95% on 2 lpm NC; vg1 18:37 BP 119 / 60; Pulse 109; Resp 26; Pulse Ox 96% on 2 lpm NC; vg1 19:00 BP 119 / 58; Pulse 107; Resp 30; Pulse Ox 95% on 2 lpm NC; vg1 19:30 BP 116 / 60; Pulse 113; Resp 26; Pulse Ox 95% on 2 lpm NC; vg1 20:00 BP 122 / 68; Pulse 108; Resp 24; Temp 98.8(O); Pulse Ox 96% on 2 lpm NC; vg1 20:48 BP 105 / 52; Pulse 95; Resp 18; Pulse Ox 94% on 2 lpm NC; vg1 16:16 Body Mass Index 20.02 (51.26 kg, 160.02 cm) sv MDM: 01/24 16:26 Order name: Amylase, Serum sv 01/24 16:26 Order name: Basic Metabolic Panel sv 01/24 16:26 Order name: Blood Culture Adult (2) sv 01/24 16:26 Order name: CBC with Diff; Complete Time: 17:50 sv 01/24 16:26 Order name: Ckmb; Complete Time: 17:50 sv 01/24 16:26 Order name: CPK; Complete Time: 17:50 sv 01/24 16:26 Order name: Lactate; Complete Time: 17:50 sv 01/24 16:26 Order name: LFT's; Complete Time: 17:50 sv 01/24 16:26 Order name: Lipase; Complete Time: 17:50 sv 01/24 16:26 Order name: Procalcitonin sv 01/24 16:26 Order name: Protime (+inr); Complete Time: 17:50 01/24 16:26 Order name: Ptt, Activated; Complete Time: 17:50 01/24 16:26 Order name: Troponin (emerg Dept Use Only); Complete Time: 17:50 sv 01/24 16:26 Order name: Urine Microscopic Only 01/24 16:26 Order name: Chest Single View XRAY; Complete Time: 17:50 01/24 16:26 Order name: Amylase; Complete Time: 17:50 EDNY 01/24 16:26 Order name: Basic Metabolic Panel; Complete Time: 17:50 EDMS 01/24 16:26 Order name: Blood Culture EDNY 01/24 16:51 Order name: Digoxin; Complete Time: 17:50 [facility] 01/24 16:51 Order name: Sputum Culture [facility] 01/24 16:59 Order name: Glucose, Ancillary Testing; Complete Time: 17:50 EDNY 01/24 18:35 Order name: Urine Osmolality [facility] 01/24 18:35 Order name: Osmolality, Serum [facility] 01/24 18:35 Order name: Urine Sodium Random [facility] 01/24 18:45 Order name: COVID-19/FLU A+B EDNY 01/24 16:26 Order name: Accucheck; Complete Time: 16:47 01/24 16:26 Order name: Cardiac monitoring; Complete Time: 16:37 01/24 16:26 Order name: EKG - Nurse/Tech; Complete Time: 16:37 01/24 16:26 Order name: IV Saline Lock - Large Bore; Complete Time: 16:43 01/24 16:26 Order name: Labs collected and sent; Complete Time: 16:43 01/24 16:26 Order name: O2 Per Protocol; Complete Time: 16:37 01/24 16:26 Order name: O2 Sat Monitoring; Complete Time: 16:37 01/24 19:03 Order name: CONS Physician Consult EDNY MDM: 16:[address] [facility] 17:07 Antibiotic administration: Merrem/Zithromax. Differential diagnosis: Anxiety Reaction balbir asthma, Bronchitis CHF exacerbation, Chronic Obstructive Pulmonary Disease bronchitis, flu, viral Infection, bacterial infection, URI, bronchitis, pneumonia UTI, pneumonia, pulmonary edema, Pulmonary Embolism reactive airway disease, Sepsis Unstable Angina. The patient's Wells Deep Vein Thrombosis Score was calculated as follows: Heart Rate >100 BPM (1.5 Pts) Total Score: 0-2 Pts- Low Risk. Differential Diagnosis: Obstructed Airway Bronchitis Influenza Upper Respiratory Infection Pharyngitis Viral Syndrome Pneumonia. The patient's pulmonary embolism risk score was calculated as follows: the patients heart rate is greater than 100 beats per minute (1.5 Pts) Total Score: 0-2 points. This patient was found to be at low risk for a pulmonary embolism by using the Well's assessment criteria. Immunization status: Pneumococcal vaccine: Influenza vaccine: Data reviewed: vital signs, nurses notes, lab test result(s), EKG, radiologic studies, plain films. Data interpreted: monitoring manager: rate is 104 beats/min, rhythm is regular, Pulse oximetry: on room air is 93 %. Test interpretation: by ED physician or midlevel provider: ECG, plain radiologic studies. 01/24 16:26 Order name: Amylase, Serum sv 01/24 16:26 Order name: Basic Metabolic Panel sv 01/24 16:26 Order name: Blood Culture Adult (2) sv 01/24 16:26 Order name: CBC with Diff; Complete Time: 17:50 sv 01/24 16:26 Order name: Ckmb; Complete Time: 17:50 sv 01/24 16:26 Order name: CPK; Complete Time: 17:50 sv 01/24 16:26 Order name: Lactate; Complete Time: 17:50 sv 01/24 16:26 Order name: LFT's; Complete Time: 17:50 sv 01/24 16:26 Order name: Lipase; Complete Time: 17:50 sv 01/24 16:26 Order name: Procalcitonin sv 01/24 16:26 Order name: Protime (+inr); Complete Time: 17:50 sv 01/24 16:26 Order name: Ptt, Activated; Complete Time: 17:50 sv 01/24 16:26 Order name: Troponin (emerg Dept Use Only); Complete Time: 17:50 sv 01/24 16:26 Order name: Urine Microscopic Only 01/24 16:26 Order name: Chest Single View XRAY; Complete Time: 17:50 sv 01/24 16:26 Order name: Amylase; Complete Time: 17:50 EDMS 01/24 16:26 Order name: Basic Metabolic Panel; Complete Time: 17:50 EDMS 01/24 16:26 Order name: Blood Culture [facility] 01/24 16:51 Order name: Digoxin; Complete Time: 17:50 [facility] 01/24 16:51 Order name: Sputum Culture [facility] 01/24 16:59 Order name: Glucose, Ancillary Testing; Complete Time: 17:50 [facility] 01/24 18:35 Order name: Urine Osmolality [facility] 01/24 18:35 Order name: Osmolality, Serum [facility] 01/24 18:35 Order name: Urine Sodium Random [facility] 01/24 18:45 Order name: COVID-19/FLU A+B [facility] 01/24 16:26 Order name: Accucheck; Complete Time: 16:47 sv 01/24 16:26 Order name: Cardiac monitoring; Complete Time: 16:37 sv 01/24 16:26 Order name: EKG - Nurse/Tech; Complete Time: 16:37 sv 01/24 16:26 Order name: IV Saline Lock - Large Bore; Complete Time: 16:43 sv 01/24 16:26 Order name: Labs collected and sent; Complete Time: 16:43 sv 01/24 16:26 Order name: O2 Per Protocol; Complete Time: 16:37 sv 01/24 16:26 Order name: O2 Sat Monitoring; Complete Time: 16:37 sv 01/24 19:03 Order name: CONS Physician Consult EDNY EC:58 Rate is 110 beats/min. Rhythm is regular. QRS [place] is Normal. ID interval is normal. [facility] QRS interval is normal. QT interval is normal. No Q waves. T waves are Inverted in leads II, III. ST Segment is depressed in leads V4, V5, V6. Clinical impression: NSR w/ Non-specific ST/T Changes and No evidence of ischemia. Interpreted by me. Reviewed by me. Administered Medications: 17:53 Drug: Tylenol 650 mg Route: PO; vg1 20:49 Follow up: Response: No adverse reaction; Temperature is decreased vg1 17:55 Drug: NS 0.9% 500 ml Route: IV; Rate: bolus; Site: right antecubital; vg1 18:30 Follow up: IV Status: Completed infusion; IV Intake: 500ml vg1 18:00 Drug: SOLU-Medrol (methylPrednisoLONE) 125 mg Route: IVP; Site: right antecubital; vg1 20:50 Follow up: Response: No adverse reaction vg1 18:02 Drug: Pepcid (famotidine) 20 mg Route: IVP; Site: right antecubital; vg1 20:49 Follow up: Response: No adverse reaction vg1 18:04 Drug: Meropenem 1 grams Route: IV; Rate: per protocol; Site: right antecubital; vg1 18:36 Follow up: IV Status: Completed infusion; IV Intake: 100ml vg1 18:07 Drug: Xopenex (levalbuterol) 1.25 mg Route: Inhalation; vg1 20:50 Follow up: Response: No adverse reaction vg1 18:07 Drug: AtroVENT (ipratropium) Aerosol 0.5 mg Route: Inhalation; vg1 20:49 Follow up: Response: No adverse reaction vg1 18:32 Drug: NS 0.9% 1000 ml Route: IV; Rate: 125 ml/hr; Site: right antecubital; vg1 20:49 Follow up: IV Status: Infusion continued upon admission vg1 18:38 Drug: Digoxin 0.25 mg Route: IVP; Site: right antecubital; vg1 20:48 Follow up: BP 105 / 52; Pulse 95 bpm; Resp 18 bpm; Pulse Ox 94% 2 lpm Nasal Cannula; vg1 Response: No adverse reaction 18:45 Drug: Zithromax (azithromycin) 500 mg Route: IVPB; Infused Over: 1 hrs; Site: right vg1 antecubital; 19:56 Follow up: IV Status: Completed infusion; IV Intake: 250ml vg1 Disposition: 01/24/21 17:14 Hospitalization ordered by Santi Rangel for Inpatient Admission. Preliminary diagnosis are Fever, unspecified, Chronic obstructive pulmonary disease with (acute) exacerbation, Hypoxemia, Bronchiectasis with (acute) exacerbation, Hypo-osmolality and hyponatremia. - Bed requested for Telemetry/MedSurg (Inpatient). - Status is Inpatient Admission. vg1 - Condition is Fair. - Problem is new. - Symptoms have improved. Signatures: Dispatcher [employer] EDMS Amarilis Vargas, RN Silvana Garcia RN RN dw Anderson, Corey, MD MD cha Garcia, Victoria RN RN vg1 Corrections: (The following items were deleted from the chart) 18:03 16:51 Influenza Screen (A \\T\\ B)+BA.LAB.BRZ ordered. EDNY EDMS 18:03 16:51 CORONAVIRUS+MR.LAB.BRZ ordered. EDNY EDMS 18:33 17:14 Hospitalization Ordered by Santi Rangel MD for Inpatient Admission. Preliminary balbir diagnosis is Fever, unspecified; Chronic obstructive pulmonary disease with (acute) exacerbation; Hypoxemia; Bronchiectasis with (acute) exacerbation. Bed requested for Telemetry/MedSurg (Inpatient). Status is Inpatient Admission. Condition is Fair. Problem is new. Symptoms have improved. balbir 19:47 18:33 01/24/2021 17:14 Hospitalization Ordered by Santi Rangel MD for Inpatient dw Admission. Preliminary diagnosis is Fever, unspecified; Chronic obstructive pulmonary disease with (acute) exacerbation; Hypoxemia; Bronchiectasis with (acute) exacerbation; Hypo-osmolality and hyponatremia. Bed requested for Telemetry/MedSurg (Inpatient). Status is Inpatient Admission. Condition is Fair. Problem is new. Symptoms have improved. [facility] 21:38 19:47 01/24/2021 17:14 Hospitalization Ordered by Santi Rangel MD for Inpatient vg1 Admission. Preliminary diagnosis is Fever, unspecified; Chronic obstructive pulmonary disease with (acute) exacerbation; Hypoxemia; Bronchiectasis with (acute) exacerbation; Hypo-osmolality and hyponatremia. Bed requested for Telemetry/MedSurg (Inpatient). Status is Inpatient Admission. Condition is Fair. Problem is new. Symptoms have improved. dw
--- NOTE | 2021-01-24 17:15 | RAD REPORT ---
EXAM DESCRIPTION: RAD - Chest Single View - 01/24/2021 5:08 pm CLINICAL HISTORY: code sepsis Chest pain. COMPARISON: No comparisons FINDINGS: Portable technique limits examination quality. [id number] interstitial lung opacities are present bilaterally suggesting interstitial infectio n. The heart is normal in size. The bones are demineralized.
[2021-01-24 17:24] LABS: ALT/SGPT 18 U/L (12-78); AST/SGOT 22 U/L (15-37); Albumin 3.3 g/dL (3.4-5.0); Alkaline Phosphatase 84 U/L (45-117); Amylase 93 U/L (25-115); BUN Blood Urea Nitrogen 11 mg/dL (7-18); Bicarbonate 25 mmol/L (21-32); Bilirubin Direct 0.2 mg/dL (0-0.2); Bilirubin Total 0.6 mg/dL (0.2-1.0); CKMB Creatine Kinase MB < 1.0 ng/mL (0.3-3.6); Creatine Phosphokinase 61 U/L (26-192); Glucose Level 122 mg/dL (74-106); Lipase 157 U/L (73-393); Potassium 4.1 mmol/L (3.5-5.1); Sodium Level 127 mmol/L (136-145); Troponin (Emerg Dept Use Only) < 0.02 ng/mL (0.0-0.045)
[2021-01-24 17:30] LABS: Protime INR 1.02
[2021-01-24] MEDS ORDERED: METHYLPREDNISOLONE 125 MG INJ ONE (17:58)
[2021-01-24] MEDS ORDERED: NA CHLORIDE 0.9% 1,000 ML ONE (17:59)
[2021-01-24] MEDS ORDERED: ACETAMINOPHEN 325 MG TABLET ONE (17:59)
[2021-01-24] MEDS ORDERED: Meropenem 1 GM/100 ML BAG ONE (17:59)
[2021-01-24] MEDS ORDERED: IPRATROPIUM BROM 0.5MG/2.5ML ONE (17:59)
[2021-01-24] MEDS ORDERED: LEVALBUTEROL 1.25 MG/3 ML NEB ONE (17:59)
[2021-01-24] MEDS ORDERED: FAMOTIDINE 20 MG/2 ML VIAL IV ONE (17:59)
[2021-01-24] MEDS ORDERED: AZITHROMYCIN IV 500 MG in NA CHLORIDE 0.9% 250 ML IVPB ONE (18:00)
[2021-01-24 18:45] LABS: SARS-COV-2 RT PCR NEGATIVE (NEGATIVE)
[2021-01-24] MEDS ORDERED: DIGOXIN 0.25 MG/ML AMP ONE (18:46)
--- NOTE | 2021-01-24 21:11 | P.HP ---
Certification for Inpatient Patient admitted to: Inpatient With expected LOS: >2 Midnights Patient will require the following post-hospital care: None Practitioner: I am a practitioner with admitting privileges, knowledge of patient current condition, hospital course, and medical plan of care. Services: Services provided to patient in accordance with Admission requirements found in Title 42 Section 412.3 of the Code of Federal Regulations Patient History Date of Service: 01/24/21 Primary Care Provider: Mata Reason for admission: COPD exacerbation History of Present Illness: Ms. Liao is an 85 yo F with COPD on 2L of home O2 at night here today for cough productive of green sputum and SOB beginning on Wednesday. She reports fever, pleuritic pain, nausea, vomiting, and diarrhea. She has not been able to keep food down. Denies wheezing. Yesterday she was prescribed doxycycline by her textile knitter but began to feel worse. Na 127, Cl 93, GFR 68, Glu 122. Dig level of 0.5. - Past Medical/Surgical History Diabetic: No -: COPD -: breast cancer -: double mastectomy - Family History Mother -: Cancer Father -: Lung disease Brother -: Cancer Sister -: Cancer Notes: pancreatic, breast - Social History Smoking Status: Never smoker Alcohol use: No CD- Drugs: No Caffeine use: Yes Place of Residence: Home Review of Systems General: Fever, Chills, Sweats, Malaise, As per HPI Eyes: Unremarkable ENT: Unremarkable Respiratory: Cough, Shortness of Breath, SOB with Excertion, Pleuritic Pain, Sputum, As per HPI Cardiovascular: Unremarkable Gastrointestinal: Nausea, Vomiting, Diarrhea, As per HPI Genitourinary: Unremarkable Musculoskeletal: Unremarkable Integumentary: Unremarkable Neurological: Unremarkable Lymphatics: Unremarkable Physical Examination - Physical Exam General: Alert, In no apparent distress, Oriented x3, Cooperative HEENT: Atraumatic, Normocephalic, PERRLA, Mucous membr. moist/pink, EOMI, Sc lerae nonicteric Neck: Supple, 2+ carotid pulse no bruit, JVD not distended, No Thyromegaly, No LAD Respiratory: Diminished, Rhonchi/gurgles Cardiovascular: No edema, Normal pulses, Regular rate/rhythm, Normal S1 S2, No gallops, No rubs, No murmurs Capillary refill: <2 Seconds Gastrointestinal: Normal bowel sounds, Soft and benign, Non-distended, No ascites, No tenderness, No masses, No rebound, No guarding Musculoskeletal: No clubbing, No swelling, No contractures, No erythema, No tenderness, No warmth Integumentary: No rashes, No breakdown, No significant lesion, No tenderness/swelling, No erythema, No warmth, No cyanosis Neurological: Normal speech, Normal strength at 5/5 x4 extr, Normal tone, Sensation intact, Cranial nerves 3-12 intact, Normal affect Lymphatics: No axilla or inguinal lymphadenopathy - Studies Laboratory Data (last 24 hrs) 01/24/21 16:30: PT 11.7, INR 1.02, APTT 34.8 01/24/21 16:30: WBC 8.40, Hgb 14.0, Hct 40.6, Plt Count 256 01/24/21 16:30: Sodium 127 L, Potassium 4.1, BUN 11, Creatinine 0.81, Glucose 122 H, Total Bilirubin 0.6, AST 22, ALT 18, Alkaline Phosphatase 84, Amylase 93, Lipase 157 Assessment and Plan - Problems (Diagnosis) (1) COPD exacerbation Current Visit: Yes Status: Acute (2) Hyponatremia Current Visit: Yes Status: Acute - Plan pulm consulted continue IVF, recheck BMP in the AM continue IV ceftriaxone and azithromycin, IV steroids breathing treatments q6hr, continue O2, currently on 2L tessalon perles PRN, zofran PRN advance diet as tolerated Discharge Plan: Home Plan to discharge in: 72 Hours - Advance Directives Does patient have a Living Will: No Does patient have a Durable POA for Healthcare: No - Code Status/Comfort Care Code Status Assessed: Yes (full code) Critical Care: No Time Spent Managing Pts Care (In Minutes): 70
[2021-01-24] MEDS ORDERED: BENZONATATE 100 MG CAP PO PRN (22:03)
[2021-01-24] MEDS ORDERED: ACETAMINOPHEN 500 MG TAB PO PRN (22:03)
[2021-01-24] MEDS ORDERED: MORPHINE 2 MG/ML SYR IV PRN (22:03)
[2021-01-24] MEDS ORDERED: ONDANSETRON 4 MG/2 ML VIAL IV PRN (22:03)
[2021-01-24] MEDS: LEVALBUTEROL 1.25 MG/3 ML NEB NEB SCH (22:03)
[2021-01-24] MEDS: INSULIN -REGULAR HUMAN 50 UNIT/0.5 ML ML SQ SCH (22:03)
[2021-01-24] MEDS ORDERED: NA CHLORIDE 0.9% 1,000 ML IV SCH (22:03)
[2021-01-24] MEDS: IPRATROPIUM BROM 0.5MG/2.5ML NEB SCH (22:03)
[2021-01-24] MEDS: METHYLPREDNISOLONE 125 MG INJ IV SCH (22:53)
[2021-01-24] MEDS: MELATONIN 5 MG TABLET PO PRN (22:56)
[2021-01-25] MEDS: IPRATROPIUM BROM 0.5MG/2.5ML NEB SCH ×4 (01:10→19:40)
[2021-01-25] MEDS: LEVALBUTEROL 1.25 MG/3 ML NEB NEB SCH ×4 (01:10→19:40)
[2021-01-25] MEDS: METHYLPREDNISOLONE 125 MG INJ IV SCH (05:04)
[2021-01-25 06:12] LABS: Absolute Lymphocytes (CBC) 0.7 K/uL (0.7-4.9); Basophils % 0.4 % (0-1.3); Hematocrit 34.4 % (36.0-45.0); MPV 7.2 fL (7.6-11.3); RBC Red Blood Cell Count 3.79 M/uL (3.86-4.86)
[2021-01-25 06:28] LABS: Bilirubin Total 0.3 mg/dL (0.2-1.0); Potassium 3.8 mmol/L (3.5-5.1)
[2021-01-25 06:29] LABS: Albumin 2.6 g/dL (3.4-5.0); Magnesium 2.1 mg/dL (1.8-2.4); Protein, Total 6.7 g/dL (6.4-8.2)
[2021-01-25 07:06] LABS: Blood Morphology Comment NOT SEEN (NOT SEEN); Platelet Estimate ADEQ
[2021-01-25 07:19] LABS: Urine Appearance CLEAR (Clear); Urine Bilirubin NEGATIVE (Negataive); Urine Blood NEGATIVE (Negative); Urine Color YELLOW (Yellow); Urine Glucose 1+ (Negative); Urine Protein NEGATIVE (Negative); Urine Urobilinogen 0.2 mg/dL (0.2-1.0); Urine pH 6.5 (5.0-7.0)
[2021-01-25 07:20] LABS: Urine Microscopic Reflex NO UMIC
[2021-01-25] MEDS: INSULIN -REGULAR HUMAN 50 UNIT/0.5 ML ML SQ SCH ×4 (07:30→20:34)
[2021-01-25] MEDS ORDERED: POTASSIUM PHOS IN 0.9 % NACL 15 MMOL/250 ML BAG IV ONE (09:00)
[2021-01-25] MEDS ORDERED: CEFTRIAXONE 1 GM/NS 50 ML 1 GM/50 ML BAG IV SCH (09:00)
[2021-01-25] MEDS ORDERED: CEFTRIAXONE/SWI 1gm 1 GM/10 ML SYR IV SCH (09:00)
[2021-01-25] MEDS: ENOXAPARIN 40 MG/0.4 ML SQ SCH (09:01)
[2021-01-25] MEDS ORDERED: CEFEPIME 1 GM/VIAL IV SCH (10:38)
--- NOTE | 2021-01-25 10:40 | P.CNS ---
Date of Consult: 01/25/21 Reason for Consult: Possible pneumonia Primary Care Provider: Mata Chief Complaint: COPD exacerbation History of Present Illness: Patient is 85 years of age with a history of bronchiectasis and the Pseudomonas infection in the past and been treated with albuterol and 7% saline nebulizers some schedule bases became sick with this week said having more fever coughing up some productive phlegm or shortness of breath and appeared in the emergency room interstitial changes on the chest x-ray Allergies albuterol Allergy (Severe, Verified 01/24/21 22:07) Anaphylaxis levofloxacin [From Levaquin] Allergy (Verified 01/24/21 21:25) Anaphylaxis Home Medications: Ascorbic Acid [Vitamin C] 1 tab PO DAILY 01/24/21 Digoxin [Lanoxin*] 1 tab PO DAILY 01/24/21 Diltiazem Tab [Cardizem Tab*] 30 mg PO BID 01/24/21 Doxycycline Hyclate [Vibramycin] 1 tab PO BID 01/24/21 Fluticasone Furoate [Arnuity Ellipta] 1 puff IN DAILY 01/24/21 Garlic 1 tab PO DAILY 01/24/21 Ipratropium Neb [Atrovent*] 1 aer IN BID 01/24/21 L.acidoph,Paracasei, B.lactis [Probiotic] 1 cap PO DAILY 01/24/21 Primidone [Mysoline *] 50 mg PO BEDTIME 01/24/21 Turmeric/Turmeric Root Extract [Turmeric 500 mg Capsule] 2 tab PO DAILY 01/24/21 Ubidecarenone/Vit E Acet [Co Q-10 100 mg Softgel] 1 cap PO DAILY 01/24/21 Vit D3/Vit K2/[place] Ext [Osteoblox Cf Capsule] 1 tab PO DAILY 01/24/21 - Past Medical/Surgical History Diabetic: No -: COPD -: breast cancer -: emphysema -: bronchitis -: Bronchiectasis -: double mastectomy -: breast augmentation - Family History Mother Medical History: Cancer Father Medical History: Lung disease Brother Medical History: Cancer Sister Medical History: Cancer Notes: pancreatic, breast - Social History Alcohol use: No CD- Drugs: No Caffeine use: Yes Place of Residence: Home Review of Systems General: Fever Respiratory: Cough, Shortness of Breath Physical Examination Temp Pulse Resp BP Pulse Ox 98.4 F 78 24 H 118/58 L 97 01/25/21 08:00 01/25/21 08:00 01/25/21 08:00 01/25/21 08:00 01/25/21 08:00 General: Alert, In no apparent distress, Oriented x3 HEENT: Atraumatic Neck: Supple Respiratory: Clear to auscultation bilaterally, Diminished Cardiovascular: No edema, Normal S1 S2 Gastrointestinal: Normal bowel sounds, Soft and benign Laboratory Data (last 24 hrs) 01/24/21 16:30: PT 11.7, INR 1.02, APTT 34.8 01/24/21 16:30: WBC 8.40, Hgb 14.0, Hct 40.6, Plt Count 256 01/24/21 16:30: Sodium 127 L, Potassium 4.1, BUN 11, Creatinine 0.81, Glucose 122 H, Total Bilirubin 0.6, AST 22, ALT 18, Alkaline Phosphatase 84, Amylase 93, Lipase 157 - Problems (1) Bronchiectasis with (acute) exacerbation Current Visit: Yes Status: Acute Plan: Patient is 85 years of age admitted with bronchiectasis essentially never smoked she has had an exacerbation before Pseudomonas has been isolated using nebulizers and normal saline admitted with high fever or productive phlegm 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 prednisone evaluate room- air pulse ox possible discharge tomorrow patient was febrile on admission
[2021-01-25] MEDS ORDERED: CEPACOL LOZENGES PO PRN (13:04)
--- NOTE | 2021-01-25 13:06 | P.PN ---
Subjective Date of Service: 01/25/21 Primary Care Provider: Mata Chief Complaint: COPD exacerbation Patient states her breathing is much better. She is tolerating 2 L oxygen by nasal cannula. She only uses oxygen at bedtime. She is noted to be slightly short of breath. Physical Examination - Vital Signs Temperature: 98.9 F Blood Pressure: 107/53 Pulse: 82 Respirations: 24 Pulse Ox (%): 98 - Physical Exam General: Alert, Mild distress HEENT: Mucous membr. moist/pink Neck: JVD not distended Respiratory: Diminished (Bilateral lungs. ), Other (No crackes.) Cardiovascular: No edema, Regular rate/rhythm, Normal S1 S2 Gastrointestinal: Normal bowel sounds, Soft and benign, Non-distended, No tenderness Musculoskeletal: No swelling, No tenderness Integumentary: No rashes, No erythema Neurological: Normal strength at 5/5 x4 extr - Studies Laboratory Data (last 24 hrs) 01/24/21 16:30: PT 11.7, INR 1.02, APTT 34.8 01/24/21 16:30: WBC 8.40, Hgb 14.0, Hct 40.6, Plt Count 256 01/24/21 16:30: Sodium 127 L, Potassium 4.1, BUN 11, Creatinine 0.81, Glucose 122 H, Total Bilirubin 0.6, AST 22, ALT 18, Alkaline Phosphatase 84, Amylase 93, Lipase 157 Assessment And Plan - Current Problems (Diagnosis) (1) COPD exacerbation Current Visit: Yes Status: Acute (2) Hyponatremia Current Visit: Yes Status: Acute (3) Hyperglycemia Current Visit: Yes Status: Acute - Plan Pulmonary input appreciated Continue scheduled bronchodilators. Oral prednisone per pulmonary Continue antibiotics. Cepacol lozenges for sore throat. Monitor blood sugar. Insulin sliding scale to manage hyperglycemia. Weaned off oxygen as tolerated.
[2021-01-25] MEDS: CEFEPIME/SWI 1gm 10 ML IV SCH ×2 (13:08→22:40)
--- NOTE | 2021-01-25 14:53 | RAD REPORT ---
EXAM DESCRIPTION: CT - Thorax Wo Con CLINICAL HISTORY: Chest pain History of bronchiectasis with an exacerbation COMPARISON: Chest Single View dated 01/24/2021 FINDINGS: Emphysematous changes are present. Bronchiectasis is in the right middle lobe, lingula and left lower lobe with extensive tree-in-bud opacity present posterior bases. No pleural thickening or pleural effusion. No pneumothorax. No axillary, mediastinal or hilar adenopathy. No lytic or blastic bone lesion. No gross upper abdominal finding. All CT scans are performed using dose optimization technique as appropriate and may include automated exposure control or mA/KV adjustment according to patient size. IMPRESSION: Bronchiectasis in both lower lobes with extensive tree-in-bud opacity, greater on the le ft. Findings likely indicate atypical pneumonia/ LEANNA infection.
[2021-01-25] MEDS ORDERED: PHENOL 1.4% ORAL SPRAY 180ML MM PRN (17:05)
[2021-01-25] MEDS ORDERED: AZITHROMYCIN IV 500 MG in NA CHLORIDE 0.9% 250 ML IVPB SCH (18:00)
[2021-01-25 18:01] LABS: Phosphorus 2.6 mg/dL (2.5-4.9); Potassium 4.5 mmol/L (3.5-5.1)
[2021-01-25] MEDS: predniSONE 20 MG TAB PO SCH (20:42)
[2021-01-25] MEDS: PRIMIDONE 50 MG TAB PO SCH (20:42)
[2021-01-25] MEDS: DILTIAZEM HCL 60 MG TAB PO SCH (21:00)
[2021-01-25] MEDS ORDERED: PHENOL 1.4% ORAL SPRAY 180ML ONE (22:03)
[2021-01-25] MEDS: MELATONIN 5 MG TABLET PO PRN (22:39)
[2021-01-26] MEDS: IPRATROPIUM BROM 0.5MG/2.5ML NEB SCH ×4 (02:00→20:05)
[2021-01-26] MEDS: LEVALBUTEROL 1.25 MG/3 ML NEB NEB SCH ×4 (02:00→20:05)
[2021-01-26 07:23] LABS: BUN Blood Urea Nitrogen 16 mg/dL (7-18); Bicarbonate 22 mmol/L (21-32); Glucose Level 150 mg/dL (74-106); Phosphorus 2.2 mg/dL (2.5-4.9); Potassium 4.2 mmol/L (3.5-5.1); Sodium Level 135 mmol/L (136-145)
[2021-01-26] MEDS: INSULIN -REGULAR HUMAN 50 UNIT/0.5 ML ML SQ SCH ×4 (07:30→20:47)
[2021-01-26] MEDS: DILTIAZEM HCL 60 MG TAB PO SCH ×2 (09:00→20:38)
[2021-01-26] MEDS: FLUTICASONE FUROATE 50 MCG IH SCH (09:00)
[2021-01-26] MEDS: ENOXAPARIN 40 MG/0.4 ML SQ SCH (10:30)
[2021-01-26] MEDS: DIGOXIN 0.125 MG TABLET PO SCH (10:31)
[2021-01-26] MEDS: predniSONE 20 MG TAB PO SCH ×2 (10:34→20:37)
--- NOTE | 2021-01-26 13:58 | P.PN ---
Subjective Date of Service: 01/26/21 Primary Care Provider: Mata Chief Complaint: COPD exacerbation Patient reports no significant changes from yesterday She only uses oxygen at bedtime. Physical Examination - Vital Signs Temperature: 98.4 F Blood Pressure: 124/60 Pulse: 85 Respirations: 17 Pulse Ox (%): 98 - Physical Exam General: Alert, In no apparent distress, Oriented x3 HEENT: Mucous membr. moist/pink Neck: JVD not distended Respiratory: Normal air movement, Expiratory wheezes (Mild scattered wheezes), Other (No crackles) Cardiovascular: No edema, Regular rate/rhythm, Normal S1 S2 Gastrointestinal: Normal bowel sounds, Soft and benign, Non-distended, No tenderness Musculoskeletal: No swelling Integumentary: No rashes Neurological: Normal strength at 5/5 x4 extr - Studies Microbiology Data (last 24 hrs): 01/24/21 17:45 Sputum Sputum Gram Stain - Final 01/24/21 17:45 Sputum Culture & Sensitivity - Final Assessment And Plan - Current Problems (Diagnosis) (1) COPD exacerbation Current Visit: Yes Status: Acute (2) Hyponatremia Current Visit: Yes Status: Acute (3) Hyperglycemia Current Visit: Yes Status: Acute - Plan Continue scheduled bronchodilators. Oral prednisone per pulmonary Continue antibiotics. Sore throat not responding to Cepacol lozenges. Upham prn for sore throat. Monitor blood sugar. Insulin sliding scale to manage hyperglycemia. Weaned off oxygen as tolerated. Monitor for another 24 hrs for improvement.
[2021-01-26] MEDS ORDERED: POTASS/SODIUM PHOSPHATE 1 PKT POWD.PACK PO ONE (14:34)
[2021-01-26] MEDS: CEFEPIME/SWI 1gm 10 ML IV SCH ×2 (14:50→23:22)
[2021-01-26] MEDS: HYDROCODONE/APAP 5/325 MG TAB PO PRN ×2 (17:07→23:22)
[2021-01-26] MEDS: PRIMIDONE 50 MG TAB PO SCH (20:40)
[2021-01-26 20:44] VITALS: O2SAT 99
[2021-01-27] MEDS: LEVALBUTEROL 1.25 MG/3 ML NEB NEB SCH ×2 (02:00→09:09)
[2021-01-27] MEDS: IPRATROPIUM BROM 0.5MG/2.5ML NEB SCH ×2 (02:00→09:09)
[2021-01-27 06:30] LABS: BUN Blood Urea Nitrogen 12 mg/dL (7-18); Bicarbonate 27 mmol/L (21-32); Glucose Level 130 mg/dL (74-106); Phosphorus 3.5 mg/dL (2.5-4.9); Potassium 4.6 mmol/L (3.5-5.1); Sodium Level 135 mmol/L (136-145)
[2021-01-27] MEDS: INSULIN -REGULAR HUMAN 50 UNIT/0.5 ML ML SQ SCH (07:30)
[2021-01-27] MEDS: DIGOXIN 0.125 MG TABLET PO SCH (08:45)
[2021-01-27] MEDS: predniSONE 20 MG TAB PO SCH (08:45)
[2021-01-27] MEDS: ENOXAPARIN 40 MG/0.4 ML SQ SCH (08:46)
[2021-01-27] MEDS: FLUTICASONE FUROATE 50 MCG IH SCH (08:57)
[2021-01-27] MEDS ORDERED: HOME MED 1 EA UNK (Ubidecarenone/Vit E Acet [Co Q-10 100 Mg Softgel] Capsule) PO SCH (09:00)
[2021-01-27] MEDS ORDERED: ASCORBIC ACID 125 MG PO SCH (09:00)
[2021-01-27] MEDS: DILTIAZEM HCL 60 MG TAB PO SCH (09:00)
[2021-01-27] MEDS ORDERED: VIT K2 PO SCH (09:00)
[2021-01-27] MEDS ORDERED: HOME MED 1 EA UNK (L.Acidoph,Paracasei, B.Lactis [Probiotic] Capsule) PO SCH (09:00)
[2021-01-27] MEDS ORDERED: GARLIC PO SCH (09:00)
[2021-01-27] MEDS ORDERED: VIT D3 PO SCH (09:00)
[2021-01-27] MEDS ORDERED: [UNRECOGNIZED DRUG - OTHER] PO SCH (09:00)
[2021-01-27] MEDS: HYDROCODONE/APAP 5/325 MG TAB PO PRN (11:01)
[2021-01-27] MEDS: CEFEPIME/SWI 1gm 10 ML IV SCH (11:02)
--- NOTE | 2021-01-27 14:03 | P.DS ---
Admission Date: 01/24/21 Discharge Date: 01/27/21 Primary Care Provider: Mata Disposition: ROUTINE DISCHARGE Discharge Condition: FAIR Reason for Admission: COPD exacerbation Consultations: Pulmonary-Dr. Garcia - Problems (1) COPD exacerbation Current Visit: Yes Status: Acute (2) Hyponatremia Current Visit: Yes Status: Acute (3) Hyperglycemia Current Visit: Yes Status: Acute (4) Sepsis Current Visit: Yes Status: Acute (5) Bronchiectasis with (acute) exacerbation Current Visit: Yes Status: Acute Brief History of Present Illness: 85 year old woman with a past medical history of COPD on 2L of home O2 at night presented to the emergency department because of cough productive of green sputum and SOB. She reported fever, pleuritic pain, nausea, vomiting, and diarrhea. She was unable to keep food down. She was prescribed doxycycline for her symptoms by her fundraising officer but her symptoms got worse. Patient noted to have hyponatremia in the ED. Chest x-ray demonstrated bilateral interstitial lung opacities. Patient met criteria for sepsis with fever, and tachycardia. She was admitted for further management. Hospital Course: Patient admitted to the medical floor and started on IV antibiotics, bronchodilators, placed on oxygen started on steroid. Patient seen and evaluated by pulmonary-Dr. Garcia. CT chest was done which reported Bronchiectasis in both lower lobes with extensive tree-in-bud opacity, greater on the left. Findings likely indicate atypical pneumonia/ LEANNA infection. Her symptoms gradually improved with treatment. Patient has shown significant clinical improvement. She is deemed stable for discharge. She is discharged with Augmentin and prednisone. Vital Signs/Physical Exam: Temp Pulse Resp BP Pulse Ox 97.9 F 91 H 16 135/66 97 01/27/21 11:48 01/27/21 11:48 01/27/21 11:48 01/27/21 11:48 01/27/21 11:48 General: Alert, In no apparent distress, Oriented x3 HEENT: Mucous membr. moist/pink Neck: JVD not distended Respiratory: Clear to auscultation bilaterally, Normal air movement Cardiovascular: No edema, Regular rate/rhythm, Normal S1 S2 Capillary refill: <2 Seconds Gastrointestinal: Normal bowel sounds, Soft and benign, Non-distended, No tenderness Musculoskeletal: No swelling Integumentary: No rashes, No tenderness/swelling Neurological: Other (No focal motor deficit.) Laboratory Data at Discharge: WBC 6.60 K/uL (4.3-10.9) D 01/25/21 05:56 Hgb 11.8 g/dL (12.0-15.0) L 01/25/21 05:56 Hct 34.4 % (36.0-45.0) L D 01/25/21 05:56 Plt Count 198 K/uL (152-406) D 01/25/21 05:56 PT 11.7 SECONDS (9.5-12.5) 01/24/21 16:30 INR 1.02 01/24/21 16:30 APTT 34.8 SECONDS (24.3-36.9) 01/24/21 16:30 Sodium 135 mmol/L (136-145) L 01/27/21 05:34 Potassium 4.6 mmol/L (3.5-5.1) 01/27/21 05:34 BUN 12 mg/dL (7-18) 01/27/21 05:34 Creatinine 0.59 mg/dL (0.55-1.3) 01/27/21 05:34 Glucose 130 mg/dL (74-106) H 01/27/21 05:34 Phosphorus 3.5 mg/dL (2.5-4.9) D 01/27/21 05:34 Magnesium 2.1 mg/dL (1.8-2.4) 01/25/21 05:56 Total Bilirubin 0.3 mg/dL (0.2-1.0) 01/25/21 05:56 AST 16 U/L (15-37) 01/25/21 05:56 ALT 16 U/L (12-78) 01/25/21 05:56 Alkaline Phosphatase 64 U/L (45-117) 01/25/21 05:56 Amylase 93 U/L (25-115) 01/24/21 16:30 Lipase 157 U/L (73-393) 01/24/21 16:30 Home Medications: Ascorbic Acid [Vitamin C] 1 tab PO DAILY 01/24/21 Digoxin [Lanoxin*] 1 tab PO DAILY 01/24/21 Diltiazem Tab [Cardizem Tab*] 30 mg PO BID 01/24/21 Fluticasone Furoate [Arnuity Ellipta] 1 puff IN DAILY 01/24/21 Garlic 1 tab PO DAILY 01/24/21 Ipratropium Neb [Atrovent*] 1 aer IN BID 01/24/21 L.acidoph,Paracasei, B.lactis [Probiotic] 1 cap PO DAILY 01/24/21 Primidone [Mysoline *] 50 mg PO BEDTIME 01/24/21 Turmeric/Turmeric Root Extract [Turmeric 500 mg Capsule] 2 tab PO DAILY 01/24/21 Ubidecarenone/Vit E Acet [Co Q-10 100 mg Softgel] 1 cap PO DAILY 01/24/21 Vit D3/Vit K2/[place] Ext [Osteoblox Cf Capsule] 1 tab PO DAILY 01/24/21 Benzonatate [Tessalon Perle*] 100 mg PO TID PRN #30 cap 01/27/21 Cefuroxime Axetil [Cefuroxime] 500 mg PO BID #10 tab 01/27/21 predniSONE [Prednisone*] 20 mg PO BID #8 tab 01/27/21 New Medications: Cefuroxime Axetil [Cefuroxime] 500 mg PO BID #10 tab predniSONE [Prednisone*] 20 mg PO BID #8 tab Benzonatate [Tessalon Perle*] 100 mg PO TID PRN #30 cap PRN Reason: Cough Diet: ADA Activity: Ad teja Followup: Aleksey Garcia MD [ACTIVE - CAN ADMIT] - OOTMELODY [Primary Care Provider] - Time spent managing pt's care (in minutes): 40
[2021-01-27 16:10] VITALS: BP 129/68; TEMP 98
== END 2021-01-27 17:05 | disposition home or self-care (01) | DRG 191 ==
LOC: ER 16:05 → ERHOLD 19:05 → 2ND 21:32
PROVIDERS: ADMIT Internal Medicine; ATTEND Internal Medicine
DX: J47.1 Bronchiectasis with (acute) exacerbation (principal); J44.1 Chronic obstructive pulmonary disease with (acute) exacerbation; E87.1 Hypo-osmolality and hyponatremia; R73.9 Hyperglycemia, unspecified; Z85.3 Personal history of malignant neoplasm of breast
CPT/HCPCS: 0240U; 36415; 71045; 71250; 80048; 80053; 80076; 80162; 81003; 82150; 82550; 82553; 82947; 83036; 83605; 83690; 83735; 83930; 83935; 84100; 84132; 84145; 84300; 84484; 85025; 85610; 85730; 87040; 87070; 87205; 93005; 94640; 94760; 96361; 96365; 96367; 96375; 99285; J0456; J0692; J0696; J1160; J1650; J2185; J2930; J7030; J7050; J7512